=== PATIENT | female | born 1960 | race Caucasian/White ===

== ENCOUNTER → 2018-07-28 | Outpatient (REF) | payer OTHER ==
[~2018-07-28] MED LIST: ESTR3TA PO; IBUP200T45 PO; MACR100C43 PO; OLME20TA2 PO; PANT40TA3 PO; PYRI1TAB5 PO
[2018-07-28 22:00] LABS: APPEARANCE, URINE CLOUDY (CLEAR); BACTERIA, URINE AUTO 1+ (NEGATIVE); BILIRUBIN, URINE AUTO NEGATIVE (NEGATIVE); BLOOD, URINE BLOOD 2+ (NEGATIVE); COLOR, URINE YELLOW (YELLOW); GLUCOSE, URINE (UA) AUTO NEGATIVE (NEGATIVE); KETONE, URINE AUTO NEGATIVE (NEGATIVE); LEUKOCYTE ESTERASE, URINE AUTO TRACE (NEGATIVE); MUCUS, URINE SMALL (NEGATIVE); NITRITE, URINE AUTO NEGATIVE (NEGATIVE); PROTEIN, URINE AUTO 1+ mg/dL (NEGATIVE); RBC, URINE AUTO 33 /HPF (0-3); SPECIFIC GRAVITY URINE AUTO 1.029 (1.002-1.035); SQUAMOUS EPITHELIAL CELL UR AU 10 /HPF (0-6); UROBILINOGEN, URINE AUTO 0.2 mg/dL (0.0-2.0); WBC, URINE AUTO 13 /HPF (0-3)
== END ==
LOC: M LAB REF 11:01
PROVIDERS: ATTEND Physician Assistant Medical
DX: N39.0 Urinary tract infection, site not specified (principal)

== ENCOUNTER 2018-07-29 07:59 | Day surgery (SDC) | payer BC, OTHER ==
[~2018-07-29] VITALS: Ht 157.5 cm; Wt 63.6 kg
[2018-07-29] MEDS ORDERED: PYRI1TAB5 PO (08:07)
[2018-07-29] MEDS ORDERED: MACR100C43 PO (08:07)
[2018-07-29] MEDS ORDERED: NS 1,000 ML IV ONE (08:45)
[2018-07-29 08:49] LABS: BILIRUBIN, URINE MANUAL OBSCURED (NEGATIVE); GLUCOSE, URINE (UA) MANUAL NEGATIVE (NEGATIVE); KETONE, URINE MANUAL OBSCURED mg/dL (NEGATIVE); UROBILINOGEN, URINE MANUAL OBSCURED mg/dl (NORMAL)
[2018-07-29 08:54] LABS: BASO % 0.4 % (0.0-1.0); EOS # 0.1 10^3/uL (0.0-0.50); EOS % 0.7 % (0.0-3.0); HEMATOCRIT 39.7 % (36.0-47.0); HEMOGLOBIN 13.1 g/dl (12.0-15.5); LYMPH # 2.1 10^3/uL (1.5-4.5); LYMPH % 19.5 % (24.0-44.0); MEAN CORPUSCULAR HEMOGLOBIN 29.1 pg (27.0-33.0); MEAN CORPUSCULAR VOLUME 88.2 fl (80.0-96.0); MONO # 0.5 10^3/uL (0.0-0.8); MONO % 4.9 % (0.0-5.0); NEUTROPHILS % 74.2 % (36.0-66.0); PLATELET COUNT, AUTOMATED 258 10^3/uL (150-450); WHITE BLOOD COUNT 10.7 10^3/uL (4.0-10.0)
[2018-07-29 09:05] LABS: BACTERIA, URINE LARGE AMOUNT; HYALINE CAST, URINE NONE SEEN /lpf (0-1); MUCUS, URINE SMALL AMOUNT (NEGATIVE); SQUAMOUS EPITHELIAL CELL URINE MOD AMOUNT /hpf (SMALL AMT)
[2018-07-29 09:16] LABS: ALBUMIN 3.4 GM/DL (3.2-5.2); ALT/SGPT 10 U/L (12-78); BILIRUBIN,DIRECT 0.2 MG/DL (0.0-0.2); BILIRUBIN,TOTAL 0.8 MG/DL (0.2-1.0); BLOOD UREA NITROGEN 13 MG/DL (7-18); CALCIUM LEVEL 8.6 MG/DL (8.8-10.2); CARBON DIOXIDE LEVEL 25 MEQ/L (21-32); CHLORIDE LEVEL 109 MEQ/L (98-107); CREATININE FOR GFR 0.82 MG/DL (0.55-1.30); GLOMERULAR FILTRATION RATE > 60.0 (>45); GLUCOSE, FASTING 126 MG/DL (70-100); LIPASE 117 U/L (73-393); POTASSIUM SERUM 3.9 MEQ/L (3.5-5.1); SODIUM LEVEL 140 MEQ/L (136-145); TOTAL PROTEIN 7.4 GM/DL (6.4-8.2)
[2018-07-29] MEDS ORDERED: metroNIDAZOLE 500 MG in APPROPRIATE DILUENT 1 EA IV ONE (10:00)
[2018-07-29] MEDS ORDERED: CIPROFLOXACIN 400 MG in APPROPRIATE DILUENT 1 EA IV ONE (10:00)
--- NOTE | 2018-07-29 10:15 | REP ---
CT ABDOMEN AND PELVIS WITHOUT CONTRAST: HISTORY: Flank pain. The patient is status post cholecystectomy. The liver, pancreas, spleen, adrenal glands, and kidneys are normal in appearance. There is no nephrolithiasis or hydroureter. There is no mass, adenopathy, or free fluid. A small hiatal hernia is present. The visualized lungs are clear. A moderate amount of stranding is present in the fat adjacent to the cecum and terminal ileum. The appendix is not definitely seen. There is no appendicolith or abscess. The patient is status post hysterectomy. The urinary bladder is normal in appearance. Diverticula are present in the sigmoid colon. A small left inguinal hernia containing fat is present. Degenerative change is present in the spine. IMPRESSION: 1. The patient is status post cholecystectomy. 2. There is edema surrounding the cecum and terminal ileum. There is no appendicolith or abscess. The appendix is not definitely seen. This may represent inflammatory bowel disease or possibly appendicitis. Electronically Signed by Quentin Pretty MD 07/29/2018 11:21 A
[2018-07-29] MEDS: GASTROGRAFIN SOLUTION 30ML PO SCH (10:22)
[2018-07-29] MEDS ORDERED: ISOVUE-370 76% 100ML VIAL (Q9967) As Ordered ONE (11:38)
--- NOTE | 2018-07-29 13:33 | REP ---
CT ABDOMEN/PELVIS WITH CONTRAST: HISTORY: Right lower quadrant pain. CONTRAST: Isovue 370, 100 mL. COMPARISON: 07/29/2018 The patient is status post cholecystectomy. The liver, pancreas, spleen, adrenal glands, and kidneys are normal in appearance. There is no nephrolithiasis or hydroureter. There is no mass, adenopathy, or free fluid. A small hiatal hernia is present. The visualized lungs are clear. The appendix is thickened measuring 9.5 mm. Stranding is present in the adjacent fat and in the fat adjacent to the cecum. There is no appendicolith or abscess. The patient is status post hysterectomy. The urinary bladder is normal in appearance. Diverticula are present in the sigmoid colon. A small fat-containing left inguinal hernia is present. Degenerative change is present in the spine. IMPRESSION: 1. The patient is status post cholecystectomy. 2. The appendix is thickened measuring 9.5 mm in width. There is surrounding edema. These findings are consistent with appendicitis. 3. The patient is status post hysterectomy. 4. Diverticulosis. 5. Small fat-containing left inguinal hernia. Electronically Signed by Quentin Pretty MD 07/29/2018 01:44 P
[2018-07-29] MEDS ORDERED: PANT40TA3 PO (14:12)
[2018-07-29] MEDS ORDERED: OLME20TA2 PO (14:12)
[2018-07-29] MEDS ORDERED: ESTR3TA PO (14:12)
[2018-07-29] MEDS ORDERED: IBUP200T45 PO (14:13)
[2018-07-29] MEDS ORDERED: BUPIVACAINE/EPIN 0.25% 30 ML VIAL As Ordered ONE (14:19)
[2018-07-29] MEDS ORDERED: ROCURONIUM BROMIDE 50 MG/5 ML VIAL As Ordered ONE (14:24)
[2018-07-29] MEDS ORDERED: LIDOCAINE 2% INJ 100 MG/5 ML SDV (FOR ANES.) As Ordered ONE (14:24)
[2018-07-29] MEDS ORDERED: ONDANSETRON 4MG/2ML VIAL (J2405) As Ordered ONE (14:24)
[2018-07-29] MEDS ORDERED: SUCCINYLCHOLINE 100 MG/5 ML SYRINGE (J0330) As Ordered ONE (14:24)
[2018-07-29] MEDS ORDERED: MIDAZOLAM INJ 2 MG/2 ML VIAL (J2250) As Ordered ONE (14:24)
[2018-07-29] MEDS ORDERED: PROPOFOL 200 MG/20 ML VIAL As Ordered ONE (14:24)
[2018-07-29] MEDS ORDERED: KETOROLAC 60 MG/2 ML VIAL (J1885) As Ordered ONE (14:24)
[2018-07-29] MEDS ORDERED: dexameTHASONE 4 MG/ML 1ML VIAL (J1100) As Ordered ONE (14:24)
[2018-07-29] MEDS ORDERED: fentaNYL 250 MCG/5 ML INJECTION (J3010) As Ordered ONE (14:24)
[2018-07-29] MEDS ORDERED: SUGAMMADEX SODIUM 500 MG/5 ML VIAL (BRIDION) As Ordered ONE (14:58)
[2018-07-29] MEDS ORDERED: D5W/LR 1,000 ML IV SCH (15:45)
[2018-07-29] MEDS ORDERED: PROMETHAZINE INJ 25 MG/ML VIAL (J2550) IV PRN (15:45)
[2018-07-29] MEDS ORDERED: NORCO, ANEXSIA 5/325MG TABLET (HYDROcodone/ACETAMINOPHEN) PO PRN ×2 (15:45)
[2018-07-29] MEDS ORDERED: METOCLOPRAMIDE INJ 10MG/2ML VIAL (J2765) IV PRN (15:45)
[2018-07-29] MEDS ORDERED: ONDANSETRON 4MG/2ML VIAL (J2405) IV PRN ×2 (15:45→16:45)
[2018-07-29] MEDS ORDERED: ACETAMINOPHEN TAB 650MG DOSE (2X325MG) PO PRN (15:45)
[2018-07-29] MEDS ORDERED: MORPHINE 4 MG/ML 1ML VIAL/SYRINGE (J2270) IV PRN ×2 (15:45)
[2018-07-29] MEDS ORDERED: LR 1,000 ML IV SCH (16:45)
[2018-07-29] MEDS ORDERED: PERCOCET 5MG/325MG TAB PO PRN (16:45)
[2018-07-29] MEDS ORDERED: fentaNYL 100 MCG/2 ML INJECTION (J3010) IV PRN (16:45)
[2018-07-29 17:10] VITALS: BP 136/75
[2018-07-29] MEDS: metroNIDAZOLE 500 MG in APPROPRIATE DILUENT 1 EA IV SCH (18:03)
[2018-07-29] MEDS: PANTOPRAZOLE 40MG INJ (PROTONIX) (C9113) IV SCH (18:03)
[2018-07-29 19:10] VITALS: BP 163/85
[2018-07-29 20:00] VITALS: BP 144/79
[2018-07-29] MEDS: KETOROLAC 30 MG/ML VIAL (J1885) IV PRN (20:09)
[2018-07-29 20:10] VITALS: BP 144/79
[2018-07-29 21:10] VITALS: BP 139/71
[2018-07-29] MEDS ORDERED: SLF 3 ML SYR IV PRN (21:30)
[2018-07-29] MEDS ORDERED: CIPROFLOXACIN 400 MG in APPROPRIATE DILUENT 1 EA IV SCH (23:00)
[2018-07-29] MEDS: SLF 3 ML SYR IV SCH (23:53)
[2018-07-30] VITALS: BP 119/58
[2018-07-30] MEDS: metroNIDAZOLE 500 MG in APPROPRIATE DILUENT 1 EA IV SCH (01:04)
[2018-07-30] MEDS: KETOROLAC 30 MG/ML VIAL (J1885) IV PRN ×2 (02:21→08:24)
[2018-07-30 04:00] VITALS: BP 111/57
[2018-07-30] MEDS: SLF 3 ML SYR IV SCH (06:20)
[2018-07-30 08:00] VITALS: BP 127/58
[2018-07-30] MEDS: PANTOPRAZOLE 40MG INJ (PROTONIX) (C9113) IV SCH (09:00)
--- NOTE | 2018-08-01 12:11 | RO ---
DATE OF PROCEDURE: 07/29/2018 PREOPERATIVE DIAGNOSIS: Acute appendicitis. POSTOPERATIVE DIAGNOSIS: Acute appendicitis. PROCEDURE: Laparoscopic appendectomy. SURGEON: Dr. Rico Reid [employer] SUPERVISOR: ANESTHESIA: General endotracheal anesthesia. ESTIMATED BLOOD LOSS: Minimal. FLUIDS: Crystalloid. DESCRIPTION OF PROCEDURE: The patient was brought to the operating room and was given general anesthesia. After adequate anesthesia and preoperative antibiotics were given, the patient was prepped and draped in the usual sterile fashion. Next a supraumbilical incision was made with skin knife. Blunt dissection was carried down to fascia. Fascia was grasped with Den clamps, elevated and a Veress needle placed into the abdominal cavity. A 12 mm dilating trocar was placed at this time and under direct visualization a suprapubic and left lower quadrant 5 mm trocars were placed. The patient was placed in deep Trendelenburg position left side down and the appendix was seen and mobilized off surrounding tissue and specifically off the right pelvic sidewall. Then the mesoappendix was taken down with harmonic scalpel all the way to the base of the appendix where the cecal wall was encountered. At this point, the KANE stapler was used to transect the base of the appendix and this was placed in an EndoCatch bag and brought out through the umbilicus. All trocars were removed under direct visualization after the right lower quadrant was copiously irrigated until clear. The umbilicus was closed with #0 Vicryl in the fascial layer and all incisions were closed with #4-0 Vicryl. Steri-Strips and a dry sterile dressing was applied. The patient was awakened, extubated and brought to the recovery room awake, alert and hemodynamically stable. Sponge and needle counts correct times two.
== END 2018-07-30 10:50 | disposition home or self-care (01) ==
LOC: M ED 07:59 → M SDC 14:16 → M PED 16:40 → M SDC 07-30 10:50
PROVIDERS: ATTEND Surgery
DX: K35.80 Unspecified acute appendicitis (principal); I10 Essential (primary) hypertension; K21.9 Gastro-esophageal reflux disease without esophagitis; Z79.899 Other long term (current) drug therapy; Z90.710 Acquired absence of both cervix and uterus
CPT/HCPCS: 36415; 44970; 74176; 74177; 80048; 80076; 81000; 83690; 85025; 87086; 88304; 96365; 96367; 96375; 96376; 99285; C9113; J0330; J0744; J1100; J1885; J2250; J2405; J3010; Q9963; Q9967

== ENCOUNTER → 2024-11-23 | Outpatient (CLI) | payer MEDICARE, OTHER ==
[~2024-11-23] MED LIST changes: -IBUP200T45 PO; +IBUP200T46 PO; -OLME20TA2 PO; +OLME20TA50 PO; +PANT40TA29 PO; -PANT40TA3 PO
[2024-11-23 09:35] LABS: HEMATOCRIT 42.8 % (36.0-47.0); HEMOGLOBIN 13.8 g/dl (12.0-15.5); MEAN CORPUSCULAR HEMOGLOBIN 28.5 pg (27.0-33.0); MEAN CORPUSCULAR HGB CONC 32.2 g/dl (32.0-36.5); MEAN CORPUSCULAR VOLUME 88.4 fl (80.0-96.0); PLATELET COUNT, AUTOMATED 242 10^3/uL (150-450); RED BLOOD COUNT 4.84 10^6/uL (4.00-5.40); WHITE BLOOD COUNT 5.7 10^3/uL (4.0-10.0)
[2024-11-23 09:54] LABS: HEMOGLOBIN A1c 6.2 % (4.0-6.0)
[2024-11-23 10:02] LABS: ALBUMIN 3.8 G/DL (3.2-5.2); BILIRUBIN,TOTAL 0.8 MG/DL (0.3-1.2); CALCIUM LEVEL 9.4 MG/DL (8.3-10.6); CHOLESTEROL RISK RATIO 2.72 (<5); CREATININE FOR GFR 0.89 MG/DL (0.55-1.30); GLOMERULAR FILTRATION RATE 71.5 (>45); HDL CHOLESTEROL 52.8 MG/DL (>40); LDL CHOLESTEROL 75.2 MG/DL (<100); NON-HDL-C 91.2 MG/DL; POTASSIUM SERUM 4.4 MMOL/L (3.5-5.1)
[2024-11-23 10:04] LABS: THYROID STIMULATING HORMONE 1.107 uIU/ML (0.55-4.78)
== END ==
LOC: M LAB 08:34
PROVIDERS: ATTEND Physician Assistant
DX: E11.9 Type 2 diabetes mellitus without complications (principal)

== ENCOUNTER 2025-03-14 10:11 | Day surgery (SDC) | payer MEDICARE, OTHER ==
[~2025-03-14] VITALS: Ht 157.5 cm; Wt 60.3 kg
[~2025-03-14 10:11] MED LIST changes: +LIDOCAINE 2% 100 MG/5 ML SDV (FOR ANES.) As Ordered ONE; +ROSU5TAB49 PO; +VITA100093 PO
[2025-03-14 11:58] VITALS: TEMP 98.1
[2025-03-14 12:21] VITALS: BP 134/70; O2SAT 97
== END 2025-03-14 12:26 | disposition home or self-care (01) ==
LOC: M OPP 10:11
PROVIDERS: ATTEND Surgery
DX: Z12.11 Encounter for screening for malignant neoplasm of colon (principal); K57.30 Diverticulosis of large intestine without perforation or abscess without bleeding; Z88.1 Allergy status to other antibiotic agents; Z88.8 Allergy status to other drugs, medicaments and biological substances; Z79.899 Other long term (current) drug therapy